=== PATIENT | male | born 1955 | race Caucasian/White ===

== ENCOUNTER → 2024-04-20 09:21 | Outpatient (REF) | payer MEDICARE, OTHER, SELFPAY | LOC: HWRAD 09:21 | PROVIDERS: ATTENDING PHYSICIAN Family Medicine | DX: Z87.891 Personal history of nicotine dependence (principal); Z12.2 Encounter for screening for malignant neoplasm of respiratory organs | CPT/HCPCS: 71271 ==

== ENCOUNTER 2024-10-25 06:21 | Day surgery (SDC) | payer MEDICARE, OTHER, SELFPAY | END 2024-10-25 10:59 | disposition home or self-care (01) | LOC: GI 06:21 | PROVIDERS: ATTENDING PHYSICIAN Internal Medicine Gastroenterology | DX: Z12.11 Encounter for screening for malignant neoplasm of colon (principal); K63.5 Polyp of colon; K57.30 Diverticulosis of large intestine without perforation or abscess without bleeding; K64.8 Other hemorrhoids; K29.70 Gastritis, unspecified, without bleeding; K31.89 Other diseases of stomach and duodenum; Z86.0100 Personal history of colon polyps, unspecified; Z13.810 Encounter for screening for upper gastrointestinal disorder | CPT/HCPCS: 45380; 43239; 88305; 88342 ==

== ENCOUNTER 2025-03-06 01:24 | Inpatient (IN) | payer MEDICARE, OTHER, SELFPAY ==
[2025-03-05 21:50] VITALS: BP 154/75
[2025-03-05 21:59] VITALS: BMI 29.5
[2025-03-05 22:00] VITALS: BP 161/72
[2025-03-05 22:16] LABS: Hematocrit 39.5 % (39.0-52.0); Hemoglobin 14.2 g/dL (13.0-18.0); Mean Corp Hgb Conc. 35.9 g/dL (33.0-37.0); Mean Corpuscular Volume 92.1 fL (80.0-94.0); Nucleated Red Blood Cells % 0 % (-); Platelet Count 185 10^3/uL (130-400); Red Cell Dist. Width 12.5 % (11.5-14.5)
[2025-03-05] MEDS: ZOFRAN 4 MG IV (22:17)
[2025-03-05] MEDS: MORPHINE SULFATE 4 MG IV (22:17)
[2025-03-05] MEDS: NSS 500 IV (22:21)
[2025-03-05 22:25] LABS: INR 0.96; PT 13.0 Sec (11.4-14.6)
[2025-03-05 22:26] LABS: APTT 25.5 Sec (23.4-35.0)
[2025-03-05 22:39] LABS: ALT (SGPT) 44 U/L (0-50); AST (SGOT) 36 U/L (17-59); Albumin 5.0 g/dl (3.5-5.0); Alkaline Phosphatase 43 U/L (38-126); Blood Urea Nitrogen 24 mg/dl (9-20); Calcium 9.5 mg/dl (8.4-10.2); Carbon Dioxide 23 mmol/L (22-30); Chloride 102 mmol/L (98-107); Estimated Creatinine Clearance 82 ml/min; Glucose 131 mg/dl (70-99); Lipase 74 U/L (23-300); Potassium 3.9 mmol/L (3.5-5.1); Sodium 134 mmol/L (135-145); Total Protein 7.5 g/dl (6.3-8.2); eGFR > 60.00
[2025-03-05 22:50] LABS: Troponin I < 0.012 ng/ml
[2025-03-05 23:11] VITALS: BP 161/71
[2025-03-05] MEDS: TYLENOL 650 MG PO (23:13)
[2025-03-06] VITALS (19 sets, daily range): BP systolic 101–140; BP diastolic 48–69
--- NOTE | 2025-03-06 00:06 | ED.GENMED ---
History of Present Illness
General
Chief Complaint: Abdominal Symptoms
Source: patient and spouse
Exam Limitations: none
Time Seen by Provider: 03/05/25 21:59
Nursing documentation reviewed up to this point in time: agreed with
History of Present Illness
History of Present Illness:
Note:
CHIEF COMPLAINT(S)
Abdominal pain described as sharp and persistent, radiating from the rib area.
HISTORY OF PRESENT ILLNESS
The patient is a 69-year-old male with a history of hypertension, hypercholesterolemia, diverticulosis, osteoarthritis, and possible pinched nerve due to spinal deterioration. The patient presented with sharp abdominal pain, starting from the ribs
and described as feeling like the stomach might explode. The pain began after returning home around 5 PM and has persisted since. The patient mentioned the pain was not relieved by his usual medications, like Omeprazole, which he takes for gastric
protection due to his medication regimen. He denies any fever, chills, or changes in bowel habits. There is no reported blood in the stool. The patient notes a subjective feeling of being cold, which he attributes possibly to the use of a heating
pad.
CHRONIC MEDICAL CONDITIONS SIGNIFICANTLY AFFECTING CARE
- Hypertension
- Hypercholesterolemia
- Diverticulosis
- Osteoarthritis
- Spinal deterioration with possible pinched nerve
SOCIAL HISTORY
The patient has a history of smoking but quit one year ago. He consumes alcohol occasionally, approximately one beer with dinner, though he has refrained from alcohol recently.
MEDICATIONS
- Omeprazole for gastric protection
- Medications for hypertension and hypercholesterolemia (specific names not mentioned)
REVIEW OF SYSTEMS
- Gastrointestinal: Sharp abdominal pain, no changes in bowel habits, no blood in stool.
- General: No fever, chills; occasional subjective feeling of coldness.
PHYSICAL EXAM
General: Alert, no acute distress.
Skin: Warm, dry.
Head: Normocephalic, atraumatic.
Neck: Supple, trachea midline.
Eye Ears, nose, mouth and throat: Oral mucosa moist.
Cardiovascular: Normal peripheral perfusion, No edema.
Respiratory: Respirations are non-labored.
Gastrointestinal: Abdomen nondistended.
Back: Normal range of motion, Normal alignment.
Musculoskeletal: Normal ROM, normal strength.
Neurological: Alert and oriented to person, place, time, and situation, No focal neurological deficit observed.
Psychiatric: Cooperative, appropriate mood & affect.
PLAN
1. Administer morphine for pain relief and Zofran (Ondansetron) for nausea management.
2. Order a CT scan to evaluate for diverticulitis or other complications such as bowel obstruction.
DIFFERENTIAL DIAGNOSIS
The Differential Diagnosis includes, in no particular order and is not limited to:
1. Appendicitis
2. Diverticulitis
3. bowel obstruction
4. Peptic ulcer disease
5. Pancreatitis
6. Gallbladder disease
7. Renal colic
8. Abdominal aortic aneurysm
9. Irritable bowel syndrome
EKG
My independent EKG interpretation is as follows:
- Rhythm: Normal sinus rhythm
- Heart rate: 68 bpm
- [place] interval: Normal
- QRS duration: Normal
- QT interval: Normal
- [place]: Normal
- Abnormalities: No evidence of ischemia present
CARE-UPDATE
03/06/25 - 00:06
CT scan of the abdomen and pelvis reveals a dilated fluid-filled appendix measuring up to 9 mm, with mild stranding and free fluid around the tip. Additionally, there is an apparent fecalith in the more proximal section of the appendix. Findings are
consistent with acute appendicitis.
Disposition:
SUMMARY OF ENCOUNTER
A 69-year-old male presented with left lower quadrant abdominal pain. A CT scan was conducted, which revealed findings consistent with acute appendicitis.
DISPOSITION
Admit
ASSESSMENT
The CT scan findings led to the assessment of acute appendicitis.
EMERGENCY TREATMENTS ADMINISTERED
Morphine was administered for pain relief, and Ondansetron (Zofran) was given for nausea management.
INDEPENDENT REVIEW OF LABS AND INTERPRETATION OF TESTS
- My independent interpretation of the CT scan shows a dilated fluid-filled appendix measuring up to 9 mm, with mild stranding and free fluid around the tip, and an apparent fecalith, consistent with acute appendicitis.
MEDICATION RECONCILIATION
- Morphine (administered for pain relief)
- Ondansetron (administered for nausea management)
MEDICAL DECISION MAKING
- Number and Complexity of Problems Addressed: Chronic conditions affecting care, including hypertension, hypercholesterolemia, diverticulosis, osteoarthritis, and spinal deterioration with a possible pinched nerve. Differential diagnosis included
acute appendicitis.
- Data:
Category 1: CT scan of the abdomen and pelvis was independently interpreted and revealed acute appendicitis.
- Risk: Admission was determined necessary due to acute appendicitis findings on the CT scan. The decision to admit was based on the risk of complications if untreated.
DIAGNOSIS
- Acute Appendicitis (ICD-10 code K35.80)
Phy Exam
Physical Exam
Physical Exam:
.
Course
Orders/Labs/Results
Orders:
Orders
03/05/25 21:59
Urinalysis Reflex To Culture Urgent
03/05/25 22:01
Electrocardiogram (*1) Urgent
Reason for Study: Abdominal Pain
EKG- Treatment ONCE
03/05/25 22:04
Complete Blood Count/With Diff Urgent
Comprehensive Metabolic Panel Urgent
Lactic Acid Urgent
Lipase Urgent
PTT Urgent
Prothrombin Time Urgent
Troponin I Urgent
Blood Culture Q30M
ANIL Source: Blood/Venous
Specimen Description:
03/05/25 22:07
Blood Culture Q30M
ANIL Source: Blood/Venous
Specimen Description:
03/05/25 22:14
CT Abd/pelvis W Iv Cont Urgent
Comment:
Reason For Exam: LLQ abd pain
Morphine Sulfate 4 mg IV NOW STA
Ondansetron Injectable [Zofran] 4 mg IV NOW STA
03/05/25 22:15
0.9% Sodium Chloride 500 ml [Nss] 500 ml IV BOLUS
03/05/25 22:47
Acetaminophen [Tylenol] 650 mg PO NOW STA
03/06/25 00:03
Piperacillin/Tazo 4.5 Gram [Zosyn] 4.5 gram in 100 ml IV NOW
Abnormal Lab Results
03/05/25
22:04
WBC 14.9 H 10^3/uL
(4.8-10.8)
RBC 4.29 L 10^6/uL
(4.70-6.10)
MCH 33.1 H pg
(27.0-31.0)
Abs Immat Gran (auto) 0.1 H 10^3/uL
(0-0.05)
Absolute Neuts (auto) 12.1 H 10^3/uL
(1.4-6.5)
Absolute Monos (auto) 0.9 H 10^3/uL
(0.1-0.6)
Neutrophils % 81.2 H %
(42.2-75.2)
Lymphocytes % 11.5 L %
(20.5-51.1)
Sodium 134 L mmol/L
(135-145)
BUN 24 H mg/dl
(9-20)
Glucose 131 H mg/dl
(70-99)
03/05/25 22:04
03/05/25 22:04
Vital Signs
Initial and Last Documented VS:
Initial Vital Signs
Temp Pulse Resp BP Pulse Ox
100.4 F H 72 28 154/75 97
03/05/25 21:50 03/05/25 21:50 03/05/25 21:50 03/05/25 21:50 03/05/25 21:50
Last Documented Vital Signs
Temp Pulse Resp BP Pulse Ox
100.5 F H 78 23 161/71 90
03/05/25 22:05 03/05/25 23:30 03/05/25 23:30 03/05/25 23:11 03/05/25 23:30
*Pulse Oximetry
SaO2: 90
Oxygen Mode of Delivery: Room air
Patient hypoxic: no
*Critical Care Note
Total Time (30-74mins, 75-104mins- exclusive of procedures): Not Applicable
Update Note
Update Note:
NAME: STEPHANIE BLANCA
DATE OF EXAM: 03/05/2025
Patient No: [id number]
Physician: BHARGAV^CARLIE^Ananya
Date of : 1955
Past Medical History (entered by Technologist):
Reason For Exam (entered by Technologist): llq abd pain
Other Notes (entered by Technologist): no priors
Additional Information (per [facility]iologist):
CT abdomen/pelvis with contrast
No comparison exam
IMPRESSION:
Dilated fluid-filled appendix measuring up to 9 mm. There is mild stranding and free fluid along the tip of the appendix. Appendicoliths noted in the more proximal appendix. Findings consistent with appendicitis. Advise surgical consultation.
No free air or loculated fluid collection.
No bowel or renal obstruction.
Diverticulosis.
Diffuse atherosclerosis.
Coronary artery calcification noted.
Degenerative changes spine and hips.
Small bilateral fat-containing inguinal hernias.
Small fat-containing umbilical hernia.
Case discussed with Dr. Motley at 11:58 pm ET.
ED Attending Note
-
Portions of this chart may have been created with voice recognition software.� Occasional wrong word or��sound alike� substitutions may have occurred due to the inherent limitations of voice recognition software.
Discharge Plan
Departure
Patient Disposition: Admit
Date of Disposition: 03/06/25
Time of Disposition: 00:19
Admit to: Med/Surg
Presentation/result/management discussed w/ accepting MD/DO: Dr. Devante Villegas
Condition: Fair
Discharge Problem:
Acute appendicitis
Prescriptions:
No Action
meloxicam 15 mg Tablet
15 mg PO DAILY
Theragen Tablet
1 tab PO DAILY
acetaminophen [Tylenol Extra Strength] 500 mg Tablet
1,000 mg PO DAILYPRN PRN (Reason: mild pain)
tamsulosin 0.4 mg Capsule
0.4 mg PO DAILY
gabapentin 300 mg Capsule
600 mg PO DAILY
omeprazole 20 mg Capsule,Delayed Release(Dr/Ec)
20 mg PO DAILY
montelukast 10 mg Tablet
10 mg PO DAILY
magnesium 250 mg Tablet
250 mg PO DAILY
hydrochlorothiazide 25 mg Tablet
25 mg PO DAILY
rosuvastatin 5 mg Tablet
5 mg PO HS
Visbiome 112.5 billion cell Capsule
1 cap PO DAILY
Referrals:
Tiny Pimentel MD [Family Provider, Family Practice]
Interventions
Interventions:
*Risk Screen - Suicide Last Done: 03/05/25 21:50
*General Assessment Last Done: 03/05/25 21:50
*Neglect/Abuse Screening Last Done: 03/05/25 21:50
*ED- Fall Risk Assessment Last Done: 03/05/25 21:50
*ED COVID-19 Vaccine History Last Done: 03/05/25 21:50
EQ-Qehkrq-Yufcrdmykj Assessment Last Done: 03/05/25 22:10
Discharge Date and Time
Print Language: KHMER
[2025-03-06] MEDS: ZOSYN 100 IV (00:16)
[2025-03-06 00:37] LABS: Urine Character Clear (Clear)
--- NOTE | 2025-03-06 00:43 | HPS.HSE ---
Addendum entered and electronically signed by Bentley Morales MD 03/06/25 15:40:
I saw and examined the patient.
The [facility] Hand's note was reviewed and I agree with the note.
Comment: 2 days of abd pain, migration to RLQ, +n/v, +f/c, + anorexia. WBC 16K. Febrile to 101F. CT c/w acute appendicitis in retrocecal position with fecalith. OCTOR for lap appy. IV abx
Original Note:
Family Physician
-
Family Physician: Tiny Pimentel
Chief Complaint
-
'abdomen pain'
History of Present Illness
69 year old patient with PMH Hypertension, hypercholesterolemia, Diverticulosis, Osteoarthritis, GERD, Left Knee Replacement, presents to ER with the complain of 'sharp abdominal pain' started this afternoon. The pain initially began around
umbilical area and migrated throughout abdomen along with nausea and feeling 'cold'. Constant sharp pain worsened with palpation and movement, persisted 5P-9:30P without relief from Omeprazole, and decided to come to ER. No vomiting episode though
feeling hungry, have poor appetite. LBM 7/22, no blood in stool, voiding without difficulty. At present pain is at mid abdomen 6/10, Febrile 100.4.
CT abd/pelvis
dilated fluid-filled appendix measuring up to 9 mm, with mild stranding and free fluid around the tip. Additionally, there is an apparent fecalith in the more proximal section of the appendix. Findings are consistent with acute appendicitis.
Medical History
Past Medical History
Past Medical History: Reports GERD, HTN and Hypercholesterolemia
Additional Past Medical History:
osteoarthritis, pinched nerve due to spinal deterioration, Diverticulosis
Past Surgical History: Reports Other
Additional Past Surgical History:
Left knee Replacement
Social History
Tobacco: Former Smoker
Alcohol: Occasional
Drug: None
Living: With Family
Family History
Family History: Not pertinent
Allergies / Home Medications
Allergies reflects when Allergies were last updated in [place].
Home Medications with original date entered in [place]
Allergy/Medication List:
Allergies
Allergy/AdvReac Type Severity Reaction Status Date / Time
oxycodone (From OxyContin) Allergy Itching Verified 03/05/25 21:50
Home Medications
Lactobac no.2-Bifidobac no.1-S. thermo 112.5 billion cell capsule (Visbiome) 1 cap PO DAILY 03/05/25
acetaminophen 500 mg tablet (Tylenol Extra Strength) 1,000 mg PO DAILYPRN PRN mild pain 03/05/25
gabapentin 300 mg capsule 600 mg PO DAILY 03/05/25
hydrochlorothiazide 25 mg tablet 25 mg PO DAILY 03/05/25
magnesium 250 mg tablet 250 mg PO DAILY 03/05/25
meloxicam 15 mg tablet 15 mg PO DAILY 03/05/25
montelukast 10 mg tablet 10 mg PO DAILY 03/05/25
omeprazole 20 mg capsule,delayed release 20 mg PO DAILY 03/05/25
rosuvastatin 5 mg tablet 5 mg PO HS 03/05/25
tamsulosin 0.4 mg capsule 0.4 mg PO DAILY 03/05/25
therapeutic multivitamin 1 tab PO DAILY 03/05/25
Review of Systems
-
History Source: Patient
A 12 point ROS was completed and negative except as noted: Yes
Constitutional: Reports No Symptoms
EENT: Reports No Symptoms
Respiratory: Reports No Symptoms
Cardiac: Reports No Symptoms
Abdomen/GI: Reports Abdominal Pain and Nausea
: Reports No Symptoms
Musculoskeletal: Reports No Symptoms
Skin: Reports No Symptoms
Neurological: Reports No Symptoms
Endocrine: Reports No Symptoms
Hematologic/Lymphatic: Reports No Symptoms
Psych: Reports No Symptoms
Physical Exam
Vital Signs
Vital Signs
Temp Pulse Resp BP Pulse Ox
100.5 F H 82 23 140/60 93
03/05/25 22:05 07/23/25 00:30 03/06/25 00:30 03/06/25 00:00 03/06/25 00:30
Physical Exam
General: Well Developed and Well Nourished
HEENT: NormoCephalic, Moist mucous membranes and Atraumatic
Respiratory: Clear and Non Labored Respirations
Cardiac: S1/S2 and Regular Rhythm
Breast: Deferred by me
GI: Soft, Non Distended, Normal Bowel Sounds and Tender (throughout abdomen )
Rectal: Deferred by Provider
Genito-urinary: No costovertebral tender
Musculoskeletal: No Clubbing, No Cyanosis and No Edema
Skin: Warm and Dry
Neuro: Awake, AO x 3 and Nonfocal/grossly intact
Hematologic/Lymphatic: No Lymphadenopathy
Psych: Calm, Intact Judgment/Insight and Anxious
Laboratory Results
-
03/05/25 22:04
03/05/25 22:04
Laboratory Results
PT 13.0 Sec (11.4-14.6) 03/05/25 22:04
INR 0.96 03/05/25 22:04
APTT 25.5 Sec (23.4-35.0) 03/05/25 22:04
Lactic Acid 1.5 mmol/L (0.7-2.0) 03/05/25 22:04
Total Bilirubin 0.9 mg/dl (0.2-1.3) 03/05/25 22:04
AST 36 U/L (17-59) 03/05/25 22:04
ALT 44 U/L (0-50) 03/05/25 22:04
Alkaline Phosphatase 43 U/L (38-126) 03/05/25 22:04
Troponin I < 0.012 ng/ml 03/05/25 22:04
Lipase 74 U/L (23-300) 03/05/25 22:04
Data Reviewed
-
CT Scan: Report Reviewed by me
Lab Data: Labs Reviewed by me
Impression/Plan
-
69 year old with the c/o abdomen pain
# Abdomen pain likely due to Acute Appendicitis
-CT abd/pelvis
dilated fluid-filled appendix measuring up to 9 mm, with mild stranding and free fluid around the tip. Additionally, there is an apparent fecalith in the more proximal section of the appendix. Findings are consistent with acute appendicitis.
- WBC 14.9
- Continue IV Zosyn
- Continue NSS
- Continue Morphine IV
- Continue IV Zofran
- Continue Tylenol
- NPO
- Admit to Dr. Villegas
- Med surg
#Essential HTN
-Continue Hydrochlorothiazide
#HLD
- Continue Rosuvastatin
#GERD
-Continue Omeprazole
#BPH?
-Continue Flomax
Full code
SCD's.
[2025-03-06 00:46] LABS: Urine Red Blood Cell None Seen /HPF (0-2); Urine Squamous Cell 0-2 /LPF (Few); Urine White Cell 0-2 /HPF (0-5)
[2025-03-06] MEDS: MORPHINE SULFATE 2 MG IV (00:57)
[2025-03-06] MEDS: NSS 1000 IV ×2 (01:55→18:00)
[2025-03-06] MEDS: TORADOL 30 MG IV (02:54)
[2025-03-06] MEDS: ZOSYN 50 IV ×3 (05:30→21:35)
[2025-03-06 05:42] LABS: Hematocrit 36.3 % (39.0-52.0); Hemoglobin 12.7 g/dL (13.0-18.0); Mean Corp Hgb Conc. 35.0 g/dL (33.0-37.0); Mean Corpuscular Volume 93.6 fL (80.0-94.0); Platelet Count 155 10^3/uL (130-400); Red Cell Dist. Width 12.7 % (11.5-14.5)
[2025-03-06 06:12] LABS: Blood Urea Nitrogen 23 mg/dl (9-20); Calcium 8.5 mg/dl (8.4-10.2); Carbon Dioxide 24 mmol/L (22-30); Chloride 104 mmol/L (98-107); Estimated Creatinine Clearance 69 ml/min; Glucose 115 mg/dl (70-99); Potassium 3.7 mmol/L (3.5-5.1); Sodium 134 mmol/L (135-145); eGFR > 60.00
[2025-03-06] MEDS: ORETIC 25 MG PO (08:14)
[2025-03-06] MEDS: SINGULAIR 10 MG PO (08:14)
[2025-03-06] MEDS: FLOMAX 0.4 MG PO (08:14)
[2025-03-06] MEDS: PROTONIX 40 MG PO (08:14)
[2025-03-06] MEDS: TYLENOL 650 MG PO (09:01)
--- NOTE | 2025-03-06 10:07 | CM ---
Patient seen at bedside in ED. Patient states he was told that he needs surgery. Patient lives with his and grandchildren that he has adopted. Patient stated that his home is at [address] [facility] [address] with no prior needs for DME. Patient stated that he
is independent of adl's and Iadl's. Patient PCP is Dr. Pimentel and he uses the [facility] in [place]. CM will continue to follow for discharge planning needs.
Plan; home with no needs vs home with VN.
--- NOTE | 2025-03-06 15:41 | W.IMMPOSTOP ---
Addendum entered and electronically signed by Bentley Morales MD 03/06/25 16:07:
updated by phone
Original Note:
Surgical Immed Post Op Note
-
Primary Surgeon: Carmen
Pre-op Diagnosis: Acute appendicitis
Post-op Diagnosis: Acute gangrenous appendicitis
Procedure Performed: Laparoscopic appendectomy
Anesthesia Type: GETA
Specimen / Cultures: Appendix in 2 segments
Estimated Blood Loss: 5cc
Complications: Superficial 3mm serosal injury to terminal ileum repaired with 2-0 silk lembert sutures
Operative Findings: Severely inflamed gangrenous and necrotic appendix dense adherent to pelvic sidewall and terminal ileum, no pus, no stool contamination; serosal injury to terinal ileum during mobilization off pelvic sidewall, as above
--- NOTE | 2025-03-06 15:43 | OR.RPT ---
Operative Report
Operative Report
Primary Surgeon: Carmen
Pre-op Diagnosis: Acute appendicitis
Post-op Diagnosis: Acute gangrenous appendicitis, umbilical hernia
Procedure Performed: Laparoscopic appendectomy
Anesthesia Type: GETA
Specimen / Cultures: Appendix in 2 segments
Estimated Blood Loss: 5cc
Complications: Superficial 3mm serosal injury to terminal ileum repaired with 2-0 silk lembert sutures
Operative Findings: Severely inflamed gangrenous and necrotic appendix dense adherent to pelvic sidewall and terminal ileum, no pus, no stool contamination; serosal injury to terinal ileum during mobilization off pelvic sidewall, as above
Date of Surgery: 03/06/25
Indications: This 69M developed right lower quadrant abdominal pain and on workup was found to have acute appendicitis. Laparoscopic appendectomy was elected.
Description of procedure: The patient was placed on the operating table in the supine position. General anesthesia was induced. A time-out was completed verifying correct patient, procedure, site, positioning, and special equipment prior to
beginning this procedure. An orogastric tube was placed. The abdomen was prepped and draped in the usual sterile fashion. A stab incision was made in left upper quadrant and the Veress needle was inserted. Proper position was confirmed by aspiration
and saline meniscus test. The abdomen was insufflated with carbon dioxide to a pressure of 12 mmHg. The patient tolerated insufflation well.
A 5mm optical trocar was then inserted at the left lower quadrant. The laparoscope was inserted and the abdomen inspected. No injuries from initial trocar placement or Veress needle insertion were noted. Additional trocars were then inserted in the
following locations: a 12-mm trocar at the umbilicus using the existing hernia defect, and a 5-mm trocar midline in the suprapubic space. The abdomen was inspected and no abnormalities were found. The table was placed in the Trendelenburg position
with the right side up. The appendix was in lateral partially retrocecal position and densely adherent to the nazia-cecal fat and pelvic sidewall. The terminal ileum was adherent to the pelvic sidewall inferior to this area. In order to facilitate
exposure of the appendix the terminal ileum was mobilized off the pelvic sidewall. A 3mm superficial serosal injury was noted to the terminal ileum. This was repaired with 2-0 silk lembert sutures. The base of the appendix was exposed and verified
by tracing the taenia to their confluence and excluding the terminal ileum which was directly visualized. A window was made in the appendiceal mesentery at the base and a laparoscopic linear cutting stapler with a 45mm anderson load was deployed and used
to transect the appendix at its base. The body of the appendix appeared black and necrotic. The base was relatively healthy and was grasped and elevated, exposing the blood supply. The blood supply was controlled with the voyant device marching
distally. During this dissection the appendix into two segments. Both were retrieved and liberated from their respective mesentery. The appendix segments were then placed in an endoscopic retrieval bag, removed through the umbilical port,
and passed off the table as a specimen.
We then turned our attention to the staple line, which was noted to be hemostatic. The right lower quadrant and pelvis were irrigated with copious sterile saline until effluent ran clear. The umbilical trocar site inclusive of the hernia was closed
at the fascial level laparoscopically with 2-0 PDS under direct vision. Secondary trocars were removed under direct vision and noted to be hemostatic. The laparoscope was withdrawn and the abdomen was allowed to collapse. The skin was closed with
subcuticular sutures of 4-0 monocryl and topical skin adhesive. The orogastric tube was removed.
The patient tolerated the procedure well and was taken to the postanesthesia care unit in stable condition.
[2025-03-06] MEDS: ZOSYN IV (16:12)
--- NOTE | 2025-03-06 17:33 | EDRN ---
This RN is completing the ED EMR and did not provide patient care during this visit.
[2025-03-06] MEDS: LOVENOX 40 MG SC (18:07)
--- NOTE | 2025-03-06 18:22 | PTCARENOTE ---
Received pt from PACU into room 406-2. NS @ 75ml/hr into R AC. 95% 2L. 4 lap sites to abdomen, intact with slight bruising. Pt reports 4/10 pain, denies need for pain medication. Educated pt to call for assistance. Pt ordered dinner, oriented to
room, no complaints at this time.
[2025-03-06] MEDS: CRESTOR 5 MG PO (21:35)
[2025-03-07] MEDS: ZOSYN 50 IV ×2 (03:29→10:17)
[2025-03-07 04:30] VITALS: BP 108/52
[2025-03-07 07:41] VITALS: BP 111/54
[2025-03-07] MEDS: TYLENOL 650 MG PO (08:24)
[2025-03-07] MEDS: PROTONIX 40 MG PO (08:24)
[2025-03-07] MEDS: ORETIC 25 MG PO (08:25)
[2025-03-07] MEDS: FLOMAX 0.4 MG PO (08:25)
[2025-03-07] MEDS: SINGULAIR 10 MG PO (08:25)
--- NOTE | 2025-03-07 09:38 | W.PN.GS2 ---
Addendum entered and electronically signed by Nas Ventura MD 03/07/25 10:24:
I was physically present and personally performed the xie portions of the surgical evaluation and/or procedure with the resident. I discussed the findings, reviewed the resident�s note, and confirmed the medical decision-making. I provided direct
supervision as required and agree with the assessment and plan as documented with the following additions/corrections:
Patient reports postoperative incisional pain well-controlled. Preoperative appendicitis pain resolved.
No nausea postoperatively. Tolerated breakfast this a.m.
Passing flatus on occasion. Does not feel significantly bloated or distended
AFVSS
NAD AAO x 3 comfortably lying in hospital bed
ABD: Soft, nondistended, minimal incisional tenderness. Incision with glue dressings.
A/P: POD #1 status post lap appendectomy -acute gangrenous appendicitis; no perforation, no contamination
Patient doing well postoperative
Stable for discharge home
Discharge on course of Augmentin as provided
Reviewed discharge instructions
Original Note:
Today's Communication / Plan
-
--Continue to slowly advance diet
--Encouraged to increase OOB/ambulation
--Stop IV Fluid
--Home pain meds: OTC Tylenol, or if severe, oral tramadol (prescribed)
--Take oral abx at home (Augmentin 1 tab/BID) for 7 days
--Miralax to stimulate BMt
--Ready for D/C
--Signed off by surgery team.
Assessment / Plan
-
69 y/o M POD#1 s/p laparoscopic appendectomy for acute gangrenous appendicitis. Patient is clinically stable.
AFVSS
Afebrile
Labs WNL
--Continue on solids LRD and advance slowly at home
--Patient encouraged to get OOB and ambulate more
--Stop IV Fluid
--Patient advised to try OTC pain meds first but if not, he was prescribed oral tramadol prn
--Patient is encouraged to continue his oral abx (Augmentin 1 tab/BID) for 7 days
--Patient can use Miralax to help with bowel movement
--Patient is ready for discharge
--Surgery signing off.
Time Spent
Total Time Spent with Patient (in minutes): 40
Subjective Data
-
Date of Service: March 07, 2025
69 y/o M with PMH HTN, HLD, OA, GERD, Diverticulosis and Left knee replacement, presented to the ER on 03/05 c/o sharp abdominal pain that initially started around the umbilical area and then slowly migrated throughout the abdomen. Patient is POD#1
from a laparoscopic appendectomy for acute gangrenous appendicitis. Patient denies any n/v/f/c. He admits to not having any BM but that he passes a little gas. Patient states that he has also been tolerating his full solid LRD, but still has to work
on getting OOB and ambulating more. Patient rates his pain a 2/10 and seems in good spirits and is excited to go home.
Objective Data
-
Intake and Output
03/06/25 03/07/25 03/08/25
06:59 06:59 06:59
Intake Total 1240 / 1240
Output Total 600 / 600 775 / 775 450 / 450
Balance -600 / -600 465 / 465 -450 / -450
Intake:
Oral fluids 300 / 300
IV fluids (Total) 890 / 890
Normosol 450 / 450
IV piggybacks 50 / 50
Output:
Urine, Voided 600 / 600 775 / 775 450 / 450
Other:
Number of approximated MODERATE 3
amounts of urine
Vital Signs
Temp Pulse Resp BP Pulse Ox
[id number] 98 F 55 16 111/54 96
03/07/25 07:41 03/07/25 07:41 03/07/25 07:41 03/07/25 07:41 03/07/25 07:41
Lab Results
03/06/25 05:26
03/06/25 05:26
Calcium 8.5 mg/dl (8.4-10.2) 03/06/25 05:26
Total Bilirubin 0.9 mg/dl (0.2-1.3) 03/05/25 22:04
AST 36 U/L (17-59) 03/05/25 22:04
ALT 44 U/L (0-50) 03/05/25 22:04
Alkaline Phosphatase 43 U/L (38-126) 03/05/25 22:04
Total Protein 7.5 g/dl (6.3-8.2) 03/05/25 22:04
Albumin 5.0 g/dl (3.5-5.0) 03/05/25 22:04
Labs: WNL
Vitals: Afebrile, WNL
Physical Exam
-
General: NAD
AAAOx3
Chest: No labored breathing
Abdomen: Mild TTP and distension around incision site. Site is healing well.
Patient has a alfaro catheter: No
Patient has a central line: No
[2025-03-07] MEDS: NSS IV (09:48)
--- NOTE | 2025-03-07 10:26 | W.DS.TRANS ---
Addendum entered and electronically signed by RADHA García 03/14/25 09:20:
dictated #[id number]
Original Note:
DC Summary - [facility]
-
Discharge Instructions:
Discharge Diagnosis/Procedures Acute appendicitis
Diet As tolerated,Regular
Additional Diets Smaller meals initially after surgery as
abdominal bloating and distention may be common
for the first few days
Activity No strenuous activity
Additional Activity No lifting over 20 pounds for 3 to 4 weeks
postop
Driving Restrictions No driving for 24 hours
Bathing Restrictions OK to Shower
Wound Care Allow skin glue to flake off on its own
Instructions: Appendectomy - Discharge instructions
Stand-Alone Forms:
Changes to Home Medications: No
Discharge Medications:
DC Medications w/original date entered in [facility]
Lactobac no.2-Bifidobac no.1-S. thermo 112.5 billion cell capsule (Visbiome) 1 cap PO DAILY Supplement 03/05/25
acetaminophen 500 mg tablet (Tylenol Extra Strength) 1,000 mg PO DAILYPRN PRN mild pain 03/05/25
gabapentin 300 mg capsule 600 mg PO DAILY Neurological Condition 03/05/25
hydrochlorothiazide 25 mg tablet 25 mg PO DAILY Fluid Retention/Swelling 03/05/25
magnesium 250 mg tablet 250 mg PO DAILY Supplement 03/05/25
meloxicam 15 mg tablet 15 mg PO DAILY Anti-Inflammatory 03/05/25
montelukast 10 mg tablet 10 mg PO DAILY Lung/Breathing Issues 03/05/25
omeprazole 20 mg capsule,delayed release 20 mg PO DAILY Gastrointestinal Issue 03/05/25
rosuvastatin 5 mg tablet 5 mg PO HS High Cholesterol 03/05/25
tamsulosin 0.4 mg capsule 0.4 mg PO DAILY Urinary Issue 03/05/25
therapeutic multivitamin 1 tab PO DAILY Supplement 03/05/25
amoxicillin 875 mg-potassium clavulanate 125 mg tablet 1 tab PO Q12 antibiotic #14 tabs 03/06/25
tramadol 50 mg tablet 50 - 100 mg (1 - 2 x 50 mg) PO Q6H PRN Pain #20 tabs 03/06/25
Home Medication Changes
Pending Results: No
[2025-03-07 11:12] VITALS: BP 110/49
--- NOTE | 2025-03-07 13:13 | CM ---
Patient seen bedside.
Patient for d/c home today spouse will transport.
IMM completed.
Plan: home no needs.
== END 2025-03-07 11:27 | disposition home or self-care (01) | DRG 399 ==
LOC: 4 EAST ACU 01:24
PROVIDERS: Nurse Practitioner Gerontology; Surgery; ADMITTING PHYSICIAN Surgery; EMERGENCY PHYSICIAN Student in an Organized Health Care Education/Training Program; FAMILY PHYSICIAN Family Medicine
PROC: 0DTJ4ZZ Resection of Appendix, Percutaneous Endoscopic Approach (ICD-10-PCS; 2025-03-06)
DX: K35.891 Other acute appendicitis without perforation, with gangrene (principal); I25.10 Atherosclerotic heart disease of native coronary artery without angina pectoris; K57.30 Diverticulosis of large intestine without perforation or abscess without bleeding; K40.20 Bilateral inguinal hernia, without obstruction or gangrene, not specified as recurrent; K42.9 Umbilical hernia without obstruction or gangrene; I10 Essential (primary) hypertension; E78.00 Pure hypercholesterolemia, unspecified; K21.9 Gastro-esophageal reflux disease without esophagitis; M19.90 Unspecified osteoarthritis, unspecified site; Z87.891 Personal history of nicotine dependence; Z79.899 Other long term (current) drug therapy
CPT/HCPCS: 74177; 80048; 80053; 81003; 81015; 83605; 83690; 84484; 85025; 85027; 85610; 85730; 86850; 86900; 86901; 87040; 88304; 93005; 96361; 96365; 96375; 99285; C1776; Q9967

== ENCOUNTER → 2025-05-31 07:56 | Outpatient (REF) | payer MEDICARE, OTHER, SELFPAY | LOC: HWRAD 07:56 | PROVIDERS: ATTENDING PHYSICIAN Family Medicine | DX: Z87.891 Personal history of nicotine dependence (principal) | CPT/HCPCS: 71271 ==